=== PATIENT | male | born 2000 | race Caucasian/White ===

== ENCOUNTER 2022-08-01 17:45 | Emergency (ER) | payer SELFPAY ==
[~2022-08-01] VITALS: Ht 170.2 cm; Wt 83.9 kg
[2022-08-01 17:47] VITALS: BP_SYST 139
--- NOTE | 2022-08-01 19:53 | NUR ---
DR. ALLEN AT BEDSIDE FOR LAC REPAIR
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
--- NOTE | 2022-08-01 20:08 | NUR ---
WOUND CARE AND DRESSING DONE, PT TOLERATED WELL.
[2022-08-01 20:09] VITALS: BP_SYST 123
--- NOTE | 2022-08-01 20:10 | NUR ---
DC PT HOME AAOX4, NO SOB NOTED AND NOT IN ANY DISTRESS. DC INSTRUCTION WERE GIVEN TO PT AND HE VERBALIZED UNDERSTANDING
== END 2022-08-01 20:08 | disposition home or self-care (01) ==
LOC: SED 17:45
DX: S61.217A Laceration without foreign body of left little finger without damage to nail, initial encounter (principal); Z79.899 Other long term (current) drug therapy; V28.0XXA Motorcycle driver injured in noncollision transport accident in nontraffic accident, initial encounter; Y93.89 Activity, other specified; Y92.89 Other specified places as the place of occurrence of the external cause; Y99.8 Other external cause status
CPT/HCPCS: 99282

== ENCOUNTER 2022-08-11 17:42 | Emergency (ER) | payer OTHER ==
[~2022-08-11] VITALS: Ht 170.2 cm; Wt 83.9 kg
[2022-08-11 18:14] VITALS: BP_SYST 121
--- NOTE | 2022-08-11 18:16 | NUR ---
Patient triaged and placed in waiting room. VSS and patient appears in no acute distress at this time. Accompanied by SELF, awaiting available bed, and MD notified of need for MSE.
--- NOTE | 2022-08-11 18:25 | NUR ---
ER DR. URBANO EXAMINING PT
[2022-08-11 19:00] VITALS: BP_SYST 121
--- NOTE | 2022-08-11 19:00 | NUR ---
Patient given written and verbal discharge instructions and verbalizes understanding. ER MD discussed with patient the results and treatment provided. Patient in stable condition. ID arm band removed. NO Rx given. Patient educated on pain management and to follow up with PMD. Pain Scale 0/10. Opportunity for questions provided and answered. Medication side effect fact sheet provided.
== END 2022-08-11 19:00 | disposition home or self-care (01) ==
LOC: SED 17:42
DX: Z48.02 Encounter for removal of sutures (principal); Z79.899 Other long term (current) drug therapy
CPT/HCPCS: 99281